=== PATIENT | male | born 1965 | race Two or more races ===

== ENCOUNTER 2024-02-22 16:17 | Inpatient (IN) | payer MEDICARE, OTHER ==
[~2024-02-22] VITALS: Ht 172.7 cm; Wt 92.5 kg
[2024-02-22] MEDS ORDERED: DOCU-141 PO (16:45)
[2024-02-22] MEDS ORDERED: OLAN10TA73 PO (16:45)
[2024-02-22] MEDS ORDERED: ACET-3117 PO ×2 (16:45)
[2024-02-22] MEDS ORDERED: METF-440 PO (16:45)
[2024-02-22] MEDS ORDERED: OLAN5TAB70 PO (16:45)
[2024-02-22] MEDS ORDERED: INSU100V28 SUBCUT (16:45)
[2024-02-22] MEDS ORDERED: LORA0.5T48 PO (16:45)
[2024-02-22] MEDS ORDERED: ASPI81TA31 PO (16:45)
[2024-02-22] MEDS ORDERED: IBUP-1953 PO (16:45)
[2024-02-22] MEDS ORDERED: MAGN400O6 PO (16:45)
[2024-02-22] MEDS ORDERED: DIVA125C5 PO (16:45)
[2024-02-22] MEDS ORDERED: BENZ1TAB7 PO (16:45)
[2024-02-22] MEDS ORDERED: ATOR40TA PO (16:45)
[2024-02-22] MEDS ORDERED: MELA3TAB47 PO (16:45)
[2024-02-22 16:51] LABS: BASOPHILS # (AUTO) 0.1 K/UL (0.0-0.2); BASOPHILS % (AUTO) 1.2 % (0.0-2.0); EOSINOPHILS # (AUTO) 0.1 K/uL (0.0-0.7); EOSINOPHILS % (AUTO) 1.1 % (0.0-7.0); HEMATOCRIT 38.3 % (36.7-47.1); LYMPHOCYTES % (AUTO) 23.9 % (20.5-51.5); MEAN CORPUSCULAR HEMOGLOBIN 32.4 uug (23.8-33.4); MEAN CORPUSCULAR HGB CONC 34 g/dL (32.5-36.3); MEAN CORPUSCULAR VOLUME 95.2 fL (73.0-96.2); MONOCYTES # (AUTO) 0.8 K/uL (0.1-1.30); NEUTROPHILS # (AUTO) 5.4 K/uL (1.8-8.9); NEUTROPHILS % (AUTO) 64.8 % (38.5-71.5); PLATELET COUNT (AUTO) 180 K/uL (152-348); RED BLOOD CELL COUNT(AUTO) 4.02 MIL/uL (4.06-5.63); RED CELL DISTRIBUTION WIDTH 13.4 % (12.1-16.2); WHITE BLOOD COUNT (AUTO) 8.4 K/uL (3.6-10.2)
[2024-02-22 16:57] LABS: CALCIUM 8.8 mg/dL (8.5-10.1); CARBON DIOXIDE 27 mmol/L (21-32); CHLORIDE 108 mmol/L (98-107); CREATININE 1.2 mg/dL (0.6-1.3); GLUCOSE 102 mg/dL (74-106); POTASSIUM 3.9 mmol/L (3.5-5.1); SODIUM SERUM 143 mmol/L (136-145); UREA NITROGEN, BLOOD 21 mg/dL (7-18)
[2024-02-22 17:02] LABS: ALANINE AMINOTRANSFERASE 19 U/L (16-63); ALBUMIN 3.6 g/dL (3.4-5.0); ALKALINE PHOSPHATASE 95 U/L (50-136); ASPARTATE AMINOTRANSFERASE 6 U/L (15-37); BILIRUBIN,DIRECT 0.1 mg/dL (0.0-0.2); BILIRUBIN,TOTAL 0.3 mg/dL (0.2-1.0); ETHANOL < 3 MG/DL (0-10); TOTAL PROTEIN, SERUM 7.2 g/dL (6.4-8.2)
[2024-02-22 17:08] LABS: THYROID STIMULATING HORMONE 2.876 mIU/mL (0.358-3.740)
[2024-02-22 18:23] LABS: *BILIRUBIN,URIN NEGATIVE (NEGATIVE); *BLOOD, URINE NEGATIVE (NEGATIVE); *CLARITY,URINE CLEAR (CLEAR); *COLOR,URINE YELLOW (YELLOW); *KETONES,URINE NEGATIVE (NEGATIVE); *PROTEIN,URINE NEGATIVE (NEGATIVE); *UROBILINOGEN,URINE 0.2 E.U./dl (NORMAL); LEUKOCYTE ESTERASE ,URINE NEGATIVE (NEGATIVE); NITRITE, URINE NEGATIVE (NEGATIVE); PH,URINE 6.5 (5.0-8.0); UGLUCOSE NEGATIVE (NEGATIVE)
[2024-02-22 18:40] LABS: *AMPHETAMINE, URINE NEGATIVE (NEGATIVE); *BARBITURATE, URINE NEGATIVE (NEGATIVE); *BENZODIAZEPINE, URINE NEGATIVE (NEGATIVE); *CANNABINOID, URINE NEGATIVE (NEGATIVE); *COCCAINE, URINE NEGATIVE (NEGATIVE); *OPIATE, URINE NEGATIVE (NEGATIVE); *PHENCYCLIDINE SCREEN,URINE NEGATIVE (NEGATIVE); FENTANYL, URINE NEGATIVE (NEGATIVE)
[2024-02-22 20:30] VITALS: BP 115/65; TEMP 98; O2SAT 96
[2024-02-22] MEDS ORDERED: LORAZEPAM 0.5 MG TABLET PO PRN (21:45)
[2024-02-22] MEDS ORDERED: MAGNESIUM HYDROXIDE 30 ML LIQUID UDC PO PRN (21:45)
[2024-02-22] MEDS ORDERED: MAG HYDROX/AL HYDROX/SIMETH 30 ML LIQUID UDC PO PRN (21:45)
[2024-02-22] MEDS ORDERED: TEMAZEPAM 7.5 MG CAPSULE PO PRN (21:45)
[2024-02-22] MEDS: BLOOD SUGAR DIAGNOSTIC 1 EACH STRIP VI ONE (21:53)
[2024-02-23 09:04] VITALS: BP 124/70; TEMP 98.2; O2SAT 98
[2024-02-23] MEDS ORDERED: METF750T46 PO (09:15)
[2024-02-23] MEDS ORDERED: IBUP-1955 PO (09:17)
[2024-02-23] MEDS: DIVALPROEX SPRINKLE 125 MG CAP.SPRINK PO SCH (12:47)
[2024-02-23] MEDS: BENZTROPINE MESYLATE 1 MG TABLET PO SCH (12:47)
[2024-02-23 17:45] VITALS: BP 122/69; TEMP 98.1; O2SAT 98
[2024-02-23] MEDS ORDERED: Medication Not On Formulary EA (Acetaminophen 650 MG) PO PRN (19:00)
[2024-02-23 20:00] VITALS: BP 129/69; TEMP 97.7; O2SAT 95
[2024-02-23] MEDS: ATORVASTATIN 40 MG TABLET PO SCH (21:48)
[2024-02-23] MEDS: MELATONIN 3 MG TABLET PO SCH (21:48)
[2024-02-23] MEDS: OLANZAPINE 5 MG TABLET PO SCH (21:48)
[2024-02-24] MEDS: ACETAMINOPHEN 325 MG TABLET PO PRN (04:31)
[2024-02-24 07:58] LABS: BASOPHILS # (AUTO) 0.1 K/UL (0.0-0.2); BASOPHILS % (AUTO) 0.9 % (0.0-2.0); EOSINOPHILS # (AUTO) 0.1 K/uL (0.0-0.7); EOSINOPHILS % (AUTO) 1.1 % (0.0-7.0); HEMATOCRIT 43.6 % (36.7-47.1); HEMOGLOBIN 14.8 g/dL (12.5-16.3); LYMPHOCYTES # (AUTO) 1.9 K/uL (0.8-4.8); LYMPHOCYTES % (AUTO) 23.6 % (20.5-51.5); MEAN CORPUSCULAR HEMOGLOBIN 32.5 uug (23.8-33.4); MEAN CORPUSCULAR HGB CONC 34 g/dL (32.5-36.3); MEAN CORPUSCULAR VOLUME 95.6 fL (73.0-96.2); MONOCYTES # (AUTO) 0.6 K/uL (0.1-1.30); MONOCYTES % (AUTO) 7.2 % (0.0-11.0); NEUTROPHILS # (AUTO) 5.5 K/uL (1.8-8.9); NEUTROPHILS % (AUTO) 67.2 % (38.5-71.5); PLATELET COUNT (AUTO) 187 K/uL (152-348); RED BLOOD CELL COUNT(AUTO) 4.56 MIL/uL (4.06-5.63); RED CELL DISTRIBUTION WIDTH 13.4 % (12.1-16.2); WHITE BLOOD COUNT (AUTO) 8.2 K/uL (3.6-10.2)
[2024-02-24 08:05] LABS: DIFFERENTIAL COMMENT 1
[2024-02-24 08:32] VITALS: BP 104/65; TEMP 98.1; O2SAT 99
[2024-02-24 08:36] LABS: BILIRUBIN,TOTAL 0.6 mg/dL (0.2-1.0); CALCIUM 9.6 mg/dL (8.5-10.1); CREATININE 1.2 mg/dL (0.6-1.3); MAGNESIUM 2.3 mg/dL (1.8-2.4); PHOSPHOROUS 4.2 mg/dL (2.5-4.9); POTASSIUM 4.4 mmol/L (3.5-5.1); TOTAL PROTEIN, SERUM 8.2 g/dL (6.4-8.2)
[2024-02-24] MEDS: DOCUSATE SODIUM 100 MG CAPSULE PO SCH (08:38)
[2024-02-24] MEDS: ASPIRIN 81 MG TAB.CHEW PO SCH (08:39)
[2024-02-24] MEDS: OLANZAPINE 5 MG TABLET PO SCH (10:21)
[2024-02-24] MEDS: METFORMIN XR 500 MG TAB.SR.24H PO SCH (12:00)
[2024-02-24 16:46] VITALS: BP 119/65; TEMP 98; O2SAT 98
[2024-02-24 19:50] VITALS: BP 122/69; TEMP 97.8; O2SAT 96
[2024-02-25 09:07] VITALS: BP 119/73; TEMP 98.2; O2SAT 98
[2024-02-25 15:11] VITALS: BP 133/66; TEMP 98; O2SAT 98
[2024-02-25 20:00] VITALS: BP 115/73; TEMP 98; O2SAT 98
[2024-02-26 07:50] VITALS: BP 117/66; TEMP 98; O2SAT 98
[2024-02-26 15:10] VITALS: BP 123/65; TEMP 98; O2SAT 96
[2024-02-26 20:00] VITALS: BP 112/64; TEMP 97.8; O2SAT 97
[2024-02-26] MEDS: DIVALPROEX 250 MG TABLET.DR PO SCH (21:02)
[2024-02-26] MEDS: ATORVASTATIN 10 MG TABLET PO SCH (21:02)
[2024-02-26] MEDS: TEMAZEPAM 7.5 MG CAPSULE PO PRN (23:26)
[2024-02-27 07:51] VITALS: BP 121/77; TEMP 98; O2SAT 99
[2024-02-27] MEDS: DIVALPROEX 250 MG TABLET.DR PO SCH (13:25)
[2024-02-27 15:55] VITALS: BP 113/69; TEMP 98; O2SAT 98
[2024-02-27 20:00] VITALS: BP 122/60; TEMP 98.1; O2SAT 98
[2024-02-28 08:02] VITALS: BP 111/69; TEMP 98; O2SAT 98
[2024-02-28] MEDS: LORAZEPAM 0.5 MG TABLET PO PRN (11:17)
[2024-02-28 15:56] VITALS: BP 118/69; TEMP 98.2; O2SAT 98
[2024-02-28 20:00] VITALS: BP 118/65; TEMP 98.1; O2SAT 96
[2024-02-29 07:54] VITALS: BP 118/70; TEMP 98; O2SAT 99
[2024-02-29 15:22] VITALS: BP 134/69; TEMP 98; O2SAT 98
[2024-02-29 20:00] VITALS: BP 142/67; TEMP 97.9; O2SAT 97
[2024-03-01] MEDS: OLANZAPINE 5 MG TABLET PO SCH (08:16)
[2024-03-01 08:55] VITALS: BP 126/73; TEMP 98; O2SAT 98
[2024-03-01 18:23] VITALS: BP 115/76; TEMP 98.1; O2SAT 98
[2024-03-01 20:00] VITALS: BP 126/67; TEMP 98.2; O2SAT 97
[2024-03-02 09:44] VITALS: BP 121/70; TEMP 98.1; O2SAT 98
[2024-03-02 17:32] VITALS: BP 128/71; TEMP 98; O2SAT 98
[2024-03-02 20:12] VITALS: BP 112/72; TEMP 98; O2SAT 94
[2024-03-03 08:00] VITALS: BP 119/76; TEMP 98.2; O2SAT 98
[2024-03-03] MEDS ORDERED: DIVALPROEX 250 MG TABLET.DR PO SCH (09:15)
[2024-03-03] MEDS: DIVALPROEX 250 MG TABLET.DR PO SCH (12:20)
[2024-03-03 16:00] VITALS: BP 135/78; TEMP 97.6; O2SAT 98
[2024-03-03 20:15] VITALS: BP 130/76; TEMP 98.1; O2SAT 98
[2024-03-03] MEDS: DIVALPROEX 500 MG TABLET.DR PO SCH (20:17)
[2024-03-04 07:35] LABS: BASOPHILS # (AUTO) 0.1 K/UL (0.0-0.2); BASOPHILS % (AUTO) 0.8 % (0.0-2.0); EOSINOPHILS # (AUTO) 0.1 K/uL (0.0-0.7); HEMATOCRIT 43.7 % (36.7-47.1); HEMOGLOBIN 14.9 g/dL (12.5-16.3); LYMPHOCYTES # (AUTO) 1.7 K/uL (0.8-4.8); LYMPHOCYTES % (AUTO) 23.3 % (20.5-51.5); MEAN CORPUSCULAR HEMOGLOBIN 32.5 uug (23.8-33.4); MEAN CORPUSCULAR HGB CONC 34 g/dL (32.5-36.3); MONOCYTES # (AUTO) 0.5 K/uL (0.1-1.30); NEUTROPHILS # (AUTO) 4.8 K/uL (1.8-8.9); NEUTROPHILS % (AUTO) 67.9 % (38.5-71.5); PLATELET COUNT (AUTO) 160 K/uL (152-348); RED CELL DISTRIBUTION WIDTH 13.3 % (12.1-16.2); WHITE BLOOD COUNT (AUTO) 7.1 K/uL (3.6-10.2)
[2024-03-04 07:45] LABS: DIFFERENTIAL COMMENT 1
[2024-03-04 07:57] LABS: BILIRUBIN,TOTAL 0.4 mg/dL (0.2-1.0); CALCIUM 9.8 mg/dL (8.5-10.1); POTASSIUM 4.2 mmol/L (3.5-5.1); TOTAL PROTEIN, SERUM 8.4 g/dL (6.4-8.2)
[2024-03-04 07:58] VITALS: BP 116/68; TEMP 98; O2SAT 99
[2024-03-04 15:14] VITALS: BP 105/66; TEMP 98; O2SAT 99
[2024-03-04 19:51] VITALS: BP 121/75; TEMP 98.1; O2SAT 95
[2024-03-05 08:11] VITALS: BP 122/70; TEMP 98; O2SAT 99
[2024-03-05 16:15] VITALS: BP 127/69; TEMP 98; O2SAT 98
[2024-03-05 20:20] VITALS: BP 120/67; TEMP 98.1; O2SAT 99
[2024-03-06 09:56] VITALS: BP 110/70; TEMP 98; O2SAT 96
== END 2024-03-06 13:35 | DRG 885 ==
LOC: ER 16:19 → GPS 20:05
PROVIDERS: ADMIT Psychiatry & Neurology Psychosomatic Medicine; ATTEND Internal Medicine
DX: F29 Unspecified psychosis not due to a substance or known physiological condition (principal); G20.A1 Parkinson's disease without dyskinesia, without mention of fluctuations; E78.5 Hyperlipidemia, unspecified; E66.9 Obesity, unspecified; E11.42 Type 2 diabetes mellitus with diabetic polyneuropathy; Z79.4 Long term (current) use of insulin; Z79.84 Long term (current) use of oral hypoglycemic drugs; Z68.30 Body mass index [BMI] 30.0-30.9, adult; I10 Essential (primary) hypertension; Z91.148 Patient's other noncompliance with medication regimen for other reason; R41.9 Unspecified symptoms and signs involving cognitive functions and awareness; F32.A Depression, unspecified; M15.9 Polyosteoarthritis, unspecified; M62.81 Muscle weakness (generalized); Z79.899 Other long term (current) drug therapy
CPT/HCPCS: 36415; 80164; 83735; 84100; 84443; 85025; G0480; J3490